=== PATIENT | female | born 1930 | race Caucasian/White ===

== ENCOUNTER 2017-08-21 17:34 | Emergency (ER) | payer OTHER ==
[~2017-08-21] VITALS: Ht 157.4 cm; Wt 56.7 kg
[~2017-08-21 17:34] MED LIST: COUMADIN5 M2; COUMADIN5 M2 PO; COUMADIN7.5 MG PO; PREDNISONE20 MG PO
[2017-08-21 18:11] LABS: BASO % 0.5 % (0.0-1.0); EOS # 0.2 10*3/uL (0.0-0.4); EOS % 2.3 % (1.0-4.0); HEMATOCRIT 36.5 % (37.0-47.0); HEMOGLOBIN 11.9 g/dl (12.0-16.0); LYMPH % 15.4 % (27.0-41.0); MEAN CELL VOLUME 90.3 fl (81.0-99.0); MEAN CORPUSCULAR HGB 29.5 pg (27.0-31.0); MEAN CORPUSCULAR HGB CONC 32.6 g/dl (33.0-37.0); MONO # 0.5 10*3/uL (0.1-1.0); MONO % 7.3 % (3.0-9.0); NEUT # 4.9 10*3/uL (2.3-7.9); NEUT % 73.9 % (47.0-73.0); PLATELET COUNT AUTOMATED 195 10*3/uL (130-400); RED BLOOD COUNT 4.04 10*6/uL (4.10-5.10); RED CELL DISTRI WIDTH 13.7 % (0-14.5); WHITE BLOOD COUNT 6.6 10*3/uL (4.8-10.8)
[2017-08-21 18:21] LABS: ACT PARTIAL THROMBO TIME 20.6 SECONDS (20.8-31.5)
[2017-08-21 18:23] LABS: BUN 25 mg/dl (7-24); CHLORIDE 109 mmol/L (98-107); CREATININE 0.95 mg/dL (0.55-1.02); SODIUM 142 mmol/L (136-145)
[2017-08-21 21:15] VITALS: BP 140/62
== END 2017-08-21 21:17 | disposition short-term general hospital (02) ==
LOC: ED 17:34
PROVIDERS: Emergency Medicine
DX: S72.092A Other fracture of head and neck of left femur, initial encounter for closed fracture (principal); G30.9 Alzheimer's disease, unspecified; F02.80 Dementia in other diseases classified elsewhere, unspecified severity, without behavioral disturbance, psychotic disturbance, mood disturbance, and anxiety; Z79.01 Long term (current) use of anticoagulants; W19.XXXA Unspecified fall, initial encounter; Y93.89 Activity, other specified; Y92.89 Other specified places as the place of occurrence of the external cause; Y99.9 Unspecified external cause status

== ENCOUNTER → 2018-01-22 | Day surgery (SDC) | payer OTHER ==
[~2018-01-22] MED LIST changes: +APRESOLINE25 MG PO; +ASPIRIN CHEWABL81 MG PO; +BUSPAR5 MG PO; +CELEBREX100 MG PO; +FERROUS SULFAT325 MG PO; +LOPRESSOR25 MG PO; +OMEPRAZOLE D/R20 MG PO; +REMERON15 M2 PO; +RISPERDAL0.25 MG PO; +Synthroid,Levo50 MCG PO; +ULTRAM50 MG PO; +XARELTO10 MG PO
--- NOTE | ~2018-01-22 | O ---
[place], [place] OPERATIVE NOTE NAME: JARRETT FRIEND UNIT #: [id number] ROOM: DOCTOR: TREE CHAVESMONICA BIRTHDATE: [birth year] DOS: 01/22/2018 GASTROENDOSCOPIC REPORT INDICATIONS: This is an 87-year-old patient who has [facility] with anemia, undergoing investigation. ALLERGIES: To no known medication. PAST MEDICAL HISTORY: Hypertension, hypercholesterolemia, hypothyroidism, and dementia. PAST SURGICAL HISTORY: Noncontributory. MEDICATIONS: As listed. PROCEDURE: Today's procedure part of investigation is panendoscopy plus antral biopsy. PREMEDICATION: Propofol. SCOPE: Olympus forward-viewing gastroscope Q10 video. REPORT: After putting the patient in left lateral position and application of lubricant to the scope, the scope was introduced. Thereafter, under direct visualization, it was advanced through the length of esophagus without difficulty. There was no evidence of ulceration or lesion in the esophagus. Gastric pouch was entered. Evidence of gastritis was noticed. Small antral biopsy was obtained. Duodenal bulb, second and third parts within normal limits. Scope was gradually withdrawn along the lesser curvature. GI reflexion of the scope reveals cardia to be benign. Air was suctioned out. The patient was extubated, tolerated the procedure well. IMPRESSION: Gastritis, status post biopsy. DISCUSSION: I cannot explain entire culprit for her anemia and guaiac positivity. Family has not consented to a colonoscopy; however, I am noticing on her chart that she is on aspirin, Celebrex, and Xarelto, and combination of all the above anticoagulant and antiplatelet could be responsible for slow and chronic mucosal blood loss, particularly in the presence of Celebrex. On the other hand, her stool is going to remain dark because she is on ferrous sulfate. Therefore, due to the presence of gastritis, I am going to start her on omeprazole 20 mg 1 daily to at least protect her against the damages of aspirin and Celebrex and follow up on H and H p.r.n. and all discussed with the daughter regarding the incomplete study because no consent to proceed with colonoscopy and actually canceled. Iron deficiency has been a point of concern and we are remain concerned that there is occult malignancy of colon possibly. However, they chose to have a conservative means of management. I thank you very much indeed for your kind referral. [place], [place] OPERATIVE NOTE NAME: JARRETT FRIEND UNIT #: [id number] ROOM: DOCTOR: MONICA LEAVITT MD BIRTHDATE: [birth year] MONICA LEAVITT MD CM:OPRECORD:OPERATIVE NOTE [id number] MONICA LEAVITT MD 01/22/18 1022 interface
[2018-01-22 08:59] VITALS: BP 156/74
[2018-01-22 09:48] VITALS: BP 91/56
[2018-01-22 10:05] VITALS: BP 136/85
[2018-01-22 10:19] VITALS: BP 143/76
== END | disposition home or self-care (01) ==
LOC: SDC 01-16 09:30
DX: K29.50 Unspecified chronic gastritis without bleeding (principal); I10 Essential (primary) hypertension; E78.00 Pure hypercholesterolemia, unspecified; K21.9 Gastro-esophageal reflux disease without esophagitis; E03.9 Hypothyroidism, unspecified; F03.90 Unspecified dementia, unspecified severity, without behavioral disturbance, psychotic disturbance, mood disturbance, and anxiety; F32.9 Major depressive disorder, single episode, unspecified; M19.90 Unspecified osteoarthritis, unspecified site; Z86.718 Personal history of other venous thrombosis and embolism; Z87.891 Personal history of nicotine dependence; Z79.01 Long term (current) use of anticoagulants; Z79.899 Other long term (current) drug therapy; Z82.49 Family history of ischemic heart disease and other diseases of the circulatory system; Z98.890 Other specified postprocedural states; Z79.82 Long term (current) use of aspirin

== ENCOUNTER 2018-04-03 18:03 | Inpatient (IN) | payer OTHER ==
[~2018-04-03] VITALS: Ht 162.5 cm; Wt 65.8 kg
--- NOTE | ~2018-04-03 | EKG ---
[place], [place] ELECTROCARDIOGRAM REPORT NAME: JARRETT FRIEND UNIT #: [id number] ROOM: 509 DOCTOR: EPIPHANY DRAFT REPORT BIRTHDATE: [birth year] [facility] Test Date: 2018-04-03 Test Time: 18:07:47 Pat Name: JARRETT FRIEND Department: 5E Room: 509 Gender: F Yarn Spinner: Ciera Pierson : 1930 Requested By: JIGNESH BETANCOUTR Order Number: [id number] Reading MD: Jayjay Shukla MD Measurements Intervals [place] Rate: 84 P: 52 [place]: 162 QRS: -53 QRSD: 107 T: 75 QT: 411 QTc: 486 Interpretive Statements Sinus rhythm Incomplete RBBB and LAFB Abnormal R-wave progression, early transition Probable left ventricular hypertrophy Anterior Q waves, possibly due to LVH Electronically Signed On 04-04-2018 10:49:56 PST by Jayjay Shukla MD CM:EKGRPT:ELECTROCARDIOGRAM REPORT 1807 1049 JIGNESH BETANCOURT EPIPHANY DRAFT REPORT JIGNESH BETANCOURT
--- NOTE | ~2018-04-03 | EKG ---
[place], [place] ELECTROCARDIOGRAM REPORT NAME: JARRETT FRIEND UNIT #: [id number] ROOM: 509 DOCTOR: DEAN DRAFT REPORT BIRTHDATE: [birth year] [facility] Test Date: 2018-04-04 Test Time: 00:05:42 Pat Name: JARRETT FRIEND Department: 5E Room: 509 Gender: F Picu Nurse: Ciera Pierson : 1930 Requested By: JIGNESH BETANCOURT Order Number: [id number] Reading MD: Jayjay Shukla MD Measurements Intervals [employer] Rate: 82 P: 66 DE: 164 QRS: -61 QRSD: 111 T: 75 QT: 396 QTc: 463 Interpretive Statements Sinus rhythm Probable left atrial enlargement Incomplete left bundle branch block Left ventricular hypertrophy Electronically Signed On 04-04-2018 10:51:30 PST by Jayjay Shukla MD CM:EKGRPT:ELECTROCARDIOGRAM REPORT 0005 1051 JIGNESH BETANCOURT EPIPHANY DRAFT REPORT JIGNESH BETANCOURT
--- NOTE | ~2018-04-03 | EKG ---
[place], [place] ELECTROCARDIOGRAM REPORT NAME: JARRETT FRIEND UNIT #: [id number] ROOM: 509 DOCTOR: DEAN DRAFT REPORT BIRTHDATE: [birth year] [facility] Test Date: 2018-04-03 Test Time: 21:44:32 Pat Name: JARRETT FRIEND Department: Room: 509 Gender: F Hearing Screener: EKG.[place] : 1930 Requested By: JIGNESH BETANCOURT Order Number: [id number] Reading MD: Jayjay Shukla MD Measurements Intervals [place] Rate: 80 P: 57 [place]: 162 QRS: -58 QRSD: 116 T: 79 QT: 385 QTc: 445 Interpretive Statements Sinus rhythm Probable left atrial enlargement Left anterior fascicular block Left ventricular hypertrophy ST elevation, consider inferior injury Electronically Signed On 04-04-2018 10:51:10 PST by Jayjay Shukla MD CM:EKGRPT:ELECTROCARDIOGRAM REPORT 1051 JIGNESH BETANCOURT EPIPHANY DRAFT REPORT JIGNESH BETANCOURT
[2018-04-03 18:13] VITALS: BP 140/68
[2018-04-03 18:34] LABS: BASO % 0.3 % (0.0-1.0); EOS # 0.2 10*3/uL (0.0-0.4); HEMATOCRIT 33.1 % (37.0-47.0); HEMOGLOBIN 10.5 g/dl (12.0-16.0); LYMPH # 1.4 10*3/uL (1.3-4.4); LYMPH % 20.2 % (27.0-41.0); MEAN CELL VOLUME 90.2 fl (81.0-99.0); MEAN CORPUSCULAR HGB 28.6 pg (27.0-31.0); MEAN CORPUSCULAR HGB CONC 31.7 g/dl (33.0-37.0); MEAN PLATELET VOLUME 11.3 fl (9.6-12.3); MONO # 0.6 10*3/uL (0.1-1.0); MONO % 8.5 % (3.0-9.0); NEUT # 4.8 10*3/uL (2.3-7.9); NEUT % 67.7 % (47.0-73.0); PLATELET COUNT AUTOMATED 225 10*3/uL (130-400); RED BLOOD COUNT 3.67 10*6/uL (4.10-5.10); RED CELL DISTRI WIDTH 14.7 % (0-14.5)
[2018-04-03 18:52] LABS: ALBUMIN 2.9 gm/dl (3.1-4.5); ALKALINE PHOSPHATASE 96 U/L (45-117); BUN 27 mg/dl (7-24); CHLORIDE 109 mmol/L (98-107); CREATININE 0.86 mg/dL (0.55-1.02); SGOT/AST 15 IU/L (3-35); SGPT/ALT 24 U/L (12-78); SODIUM 143 mmol/L (136-145); TOTAL PROTEIN 6.9 gm/dL (6.4-8.2)
[2018-04-03 18:54] LABS: ACT PARTIAL THROMBO TIME 23.1 SECONDS (20.8-31.5); INTERNATIONAL NORM RATIO 0.9 (2.0-3.5)
[2018-04-03 18:58] LABS: TROPONIN I < 0.015 ng/ml (<0.045)
[2018-04-03 21:00] VITALS: BP 132/72
[2018-04-03 21:30] VITALS: BP 140/80
--- NOTE | 2018-04-03 21:30 | NUR ---
A 88, admitted to , under the services of ELVIRA Bennett DO with a diagnosis of CHEST PAIN, R/O ACUTE WI. Chief complaint is CHEST PAIN COMPLAINT FOXES. Patient arrived via bed from ER. Monitor applied. Initial assessment completed. Vital signs taken and recorded. ELVIRA BENNETT DO notified of admission to the unit. Orders received. See assessment for past medical history, medications and allergies. Patient and/or family oriented to unit. [facility]. Clothing/patient valuable form completed. DANIEL LANDRY
--- NOTE | 2018-04-03 21:56 | NUR ---
NOTIFIED DR. ESPINOSA OF PTS. BLANCHABLE RED AREA ON COCCYX WITH OPTIFOAM DRESSING FROM [facility] AND SMALL 0.1X0.1X0.1 STAGE II WITHIN THE RED AREA. PER DR. ESPINOSA, LET WOUND CARE NURSE TAKE A LOOK AND FOLLOW HER RECOMMENDATIONS.
[2018-04-04] VITALS: BP 145/79
--- NOTE | 2018-04-04 02:47 | NUR ---
24 HR chart check completed.
--- NOTE | 2018-04-04 03:56 | NUR ---
PT IS ASLEEP IN BED AT THIS TIME WITH NO SIGNS OR SYMPTOMS OF PAIN OR DISCOMFORT. SHE IS CURRENTLY NORMAL SINUS RYTHM ON THE MONITOR WITH A HEART RATE IN THE 80'S. RESPIRATIONS ARE EASY AND UNLABORED. BED IS IN LOWEST POSITION AND ALARM IS ON. CALL LIGHT IS WITHIN REACH. WILL CONTINUE TO MONITOR PT.
--- NOTE | 2018-04-04 05:03 | NUR ---
DR. SOLITARIO'S ANSWERING SERVICE NOTIFIED OF CONSULT.
--- NOTE | 2018-04-04 06:51 | NUR ---
JARRETT FRIEND [id number] Please refer to the physician's history and physical for past medical history, comorbid conditions, and allergies. Diagnosis: CHEST PAIN, RULE OUT ACUTE MYOCARDIAL INFARCTION Sanjiv Score: 13,MODERATE RISK WOUND DESCRIPTIONS: Location of the wound: right buttocks Type of wound: stage 2 Thickness: Partial Size: 0.3cm x 0.4cm x 0.1cm Tunneling: none Undermining: none Sinus Tract: none Presence of Exudate: Serous Amount: Light Color: Red Odor: None Periwound Skin Appearance: Erythema Wound edges: approximated Pain (associated with wound): none at time of assessment How does patient state this happened? pt unable to state how this happened. Surface the patient is resting on: Isoflex SKIN PREVENTION RECOMMENDATION: 1. Pressure redistribution support surface as appropriate 2. Elevate heels 3. Remove boots/TEDS every shift and reapply 4. Head of bed 30 degrees as tolerated 5. Assess nutrition and hydration 6. Manage moisture 7. Avoid the use of containment devices while in bed 8. Use absorptive products on surfaces limit layers of linens on bed 9. Turn and reposition every 1-2 hours in bed and every 1 hour in chair as tolerated 10. Weight shifts every 15 minutes while up in chair 11. Offloading with pillows or device to keep heels elevated off bed 12. Monitor skin at least every shift 13. Inspect under medical devices twice a day WOUND TREATMENT RECOMMENDATIONS: stage 2 guidelines: Cleanse right buttocks with nss and apply sureprep around the wound hyrdrogel to wound bed and cover with optifoam gentle. Wheelchair cushion oob. Heel raiser pro boots while in bed.
[2018-04-04 08:00] VITALS: BP 152/82
[2018-04-04 08:25] LABS: BASO % 0.3 % (0.0-1.0); EOS # 0.2 10*3/uL (0.0-0.4); EOS % 2.7 % (1.0-4.0); HEMATOCRIT 34.9 % (37.0-47.0); HEMOGLOBIN 10.9 g/dl (12.0-16.0); LYMPH # 1.3 10*3/uL (1.3-4.4); LYMPH % 16.6 % (27.0-41.0); MEAN CELL VOLUME 90.2 fl (81.0-99.0); MEAN CORPUSCULAR HGB 28.2 pg (27.0-31.0); MEAN CORPUSCULAR HGB CONC 31.2 g/dl (33.0-37.0); MEAN PLATELET VOLUME 11.5 fl (9.6-12.3); MONO # 0.5 10*3/uL (0.1-1.0); MONO % 6.2 % (3.0-9.0); NEUT # 5.7 10*3/uL (2.3-7.9); NEUT % 74.1 % (47.0-73.0); PLATELET COUNT AUTOMATED 223 10*3/uL (130-400); RED BLOOD COUNT 3.87 10*6/uL (4.10-5.10); RED CELL DISTRI WIDTH 14.6 % (0-14.5); WHITE BLOOD COUNT 7.7 10*3/uL (4.8-10.8)
--- NOTE | 2018-04-04 08:41 | NUR ---
ECHO BEING DONE AT THIS TIME.
--- NOTE | 2018-04-04 08:48 | NUR ---
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
--- NOTE | 2018-04-04 08:57 | NUR ---
DR WILSON INFORMED THAT PT PULLED IV OUT. STATES OK TO LEAVE IV OUT, PT WILL LIKELY BE D/C TODAY.
[2018-04-04 09:04] LABS: ALBUMIN 2.9 gm/dl (3.1-4.5); BUN 23 mg/dl (7-24); CHLORIDE 106 mmol/L (98-107); CHOLESTEROL 169 mg/dL (<200); CREATININE 0.72 mg/dL (0.55-1.02); PHOSPHOROUS 3.1 mg/dL (2.5-4.9); POTASSIUM 4.2 mmol/L (3.5-5.1); SGOT/AST 17 IU/L (3-35); SGPT/ALT 22 U/L (12-78); SODIUM 140 mmol/L (136-145); TRIGLYCERIDES 107 mg/dl (<150); VLDL CHOLESTEROL 21 mg/dL (6-40)
[2018-04-04 09:11] LABS: ALKALINE PHOSPHATASE 87 U/L (45-117); HDL CHOLESTEROL 58 mg/dl (40-60); LDL CHOLESTEROL 90 mg/dL (9-159); TOTAL PROTEIN 6.9 gm/dL (6.4-8.2)
--- NOTE | 2018-04-04 11:31 | NUR ---
PT IS ASSISTED CARE AT [facility] AND CAN RETURN WHEN MEDICALLY STABLE. WILL CONTINUE TO FOLLOW.
[2018-04-04 12:00] VITALS: BP 107/67
--- NOTE | 2018-04-04 14:08 | NUR ---
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 SPOKE WITH DR WILSNO REGARDING THIS. STATES OK TO REMOVE BARREL MAKER.
--- NOTE | 2018-04-04 16:32 | NUR ---
PT IS DISCHARGED BACK TO [facility]. OK WITH [facility] FOR PT TO RETURN. [facility] WILL PICK PT UP AT 5:30 PM. FERMIN FLOOR NURSE INFORMED. INFORMED HER I DID NOT NOTIFY FAMILY
--- NOTE | 2018-04-04 16:55 | NUR ---
NURSE TO NURSE REPORT GIVEN TO TODD AT [facility]. FAMILY UPDATED ON D/C PLAN.
--- NOTE | 2018-04-04 17:23 | NUR ---
Discharge instructions reviewed with patient/family. Patient receptive and verbalizes understanding. Follow-up care arranged. Written instructions given to patient/family. retail product demo specialist removed. Pt transported via [facility]. FERMIN RUIZ
[2018-06-17] MEDS ORDERED: PRILOSEC20 M1 PO (21:48)
[2018-06-17] MEDS ORDERED: MUSCLE RUB CREA35 GM T (21:48)
[2018-06-17] MEDS ORDERED: REMERON15 M2 PO (21:49)
[2018-06-17] MEDS ORDERED: XARELTO10 MG PO (21:49)
[2018-06-17] MEDS ORDERED: RISPERDAL0.5 MG PO (21:49)
[2018-06-17] MEDS ORDERED: Synthroid,Levo50 MCG PO (21:50)
[2018-06-17] MEDS ORDERED: TYLENOL325 M3 PO (21:50)
[2018-06-17] MEDS ORDERED: TYLENOL WITH C1 EACH PO (21:51)
== END 2018-04-04 17:23 | DRG 313 ==
LOC: ED 18:03 → 5E 19:32 → EDHOLD 19:32 → 5E 20:36
PROVIDERS: Family Medicine; Nurse Practitioner Family; ADMIT Internal Medicine
DX: R07.89 Other chest pain (principal); E44.0 Moderate protein-calorie malnutrition; J98.11 Atelectasis; G30.9 Alzheimer's disease, unspecified; F02.80 Dementia in other diseases classified elsewhere, unspecified severity, without behavioral disturbance, psychotic disturbance, mood disturbance, and anxiety; K21.9 Gastro-esophageal reflux disease without esophagitis; M19.90 Unspecified osteoarthritis, unspecified site; M81.0 Age-related osteoporosis without current pathological fracture; I10 Essential (primary) hypertension; D64.9 Anemia, unspecified; E87.8 Other disorders of electrolyte and fluid balance, not elsewhere classified; R00.0 Tachycardia, unspecified; Z95.828 Presence of other vascular implants and grafts; Z82.49 Family history of ischemic heart disease and other diseases of the circulatory system; Z80.9 Family history of malignant neoplasm, unspecified; Z86.718 Personal history of other venous thrombosis and embolism; Z86.711 Personal history of pulmonary embolism; Z79.82 Long term (current) use of aspirin; Z79.899 Other long term (current) drug therapy; Z68.24 Body mass index [BMI] 24.0-24.9, adult

== ENCOUNTER 2018-04-24 09:04 | Emergency (ER) | payer OTHER ==
[~2018-04-24] VITALS: Wt 49.9 kg
--- NOTE | ~2018-04-24 | EKG ---
[place], [place] ELECTROCARDIOGRAM REPORT NAME: JARRETT FRIEND UNIT #: [id number] ROOM: DOCTOR: EPIPHANY DRAFT REPORT BIRTHDATE: [birth year] [facility] Test Date: 2018-04-24 Test Time: 09:29:47 Pat Name: JARRETT FRIEND Department: Room: Gender: F Build Master: : 1930 Requested By: CORETTA KAPLAN Order Number: [id number] Reading MD: Marisol Lopez MD Measurements Intervals [place] Rate: 109 P: 48 [place]: 156 QRS: -54 QRSD: 104 T: 78 QT: 338 QTc: 456 Interpretive Statements Sinus tachycardia Left anterior fascicular block Abnormal R-wave progression, late transition Probable left ventricular hypertrophy Compared to ECG 04/04/2018 00:05:42 Left anterior fascicular block now present Sinus rhythm no longer present Left bundle-branch block no longer present Electronically Signed On 04-25-2018 15:54:38 PST by Marisol Lopez MD CM:EKGRPT:ELECTROCARDIOGRAM REPORT 0929 1554 CORETTA MORAN DRAFT REPORT CORETTA KAPLAN MD
[2018-04-24 09:34] LABS: BASO % 0.3 % (0.0-1.0); EOS # 0.2 10*3/uL (0.0-0.4); EOS % 1.5 % (1.0-4.0); HEMATOCRIT 33.4 % (37.0-47.0); HEMOGLOBIN 10.7 g/dl (12.0-16.0); LYMPH % 10.3 % (27.0-41.0); MEAN CORPUSCULAR HGB 29.5 pg (27.0-31.0); MEAN PLATELET VOLUME 11.3 fl (9.6-12.3); MONO # 0.7 10*3/uL (0.1-1.0); NEUT # 8.1 10*3/uL (2.3-7.9); NEUT % 80.4 % (47.0-73.0); PLATELET COUNT AUTOMATED 282 10*3/uL (130-400); RED BLOOD COUNT 3.63 10*6/uL (4.10-5.10); RED CELL DISTRI WIDTH 14.5 % (0-14.5); WHITE BLOOD COUNT 10.1 10*3/uL (4.8-10.8)
[2018-04-24 09:51] LABS: BUN 47 mg/dl (7-24); CHLORIDE 107 mmol/L (98-107); CREATININE 1.05 mg/dL (0.55-1.02); POTASSIUM 4.8 mmol/L (3.5-5.1); SODIUM 140 mmol/L (136-145)
[2018-04-24 09:52] LABS: TROPONIN I < 0.015 ng/ml (<0.045)
[2018-04-24 11:02] VITALS: BP 108/68
[2018-06-17] MEDS ORDERED: PRILOSEC20 M1 PO (21:48)
[2018-06-17] MEDS ORDERED: MUSCLE RUB CREA35 GM T (21:48)
[2018-06-17] MEDS ORDERED: XARELTO10 MG PO (21:49)
[2018-06-17] MEDS ORDERED: RISPERDAL0.5 MG PO (21:49)
[2018-06-17] MEDS ORDERED: REMERON15 M2 PO (21:49)
[2018-06-17] MEDS ORDERED: Synthroid,Levo50 MCG PO (21:50)
[2018-06-17] MEDS ORDERED: TYLENOL325 M3 PO (21:50)
[2018-06-17] MEDS ORDERED: TYLENOL WITH C1 EACH PO (21:51)
[2018-06-21] MEDS ORDERED: NYSTOP60 GM T (15:40)
[2018-06-21] MEDS ORDERED: METOPROLOL TART50 M1 PO (15:40)
[2018-06-21] MEDS ORDERED: VITAMIN D32000 UNI1 PO (15:40)
[2018-06-21] MEDS ORDERED: Bactroban Oint22 GM NAS (15:40)
[2018-06-21] MEDS ORDERED: TYLENOL WITH C1 EACH PO (15:40)
[2018-06-21] MEDS ORDERED: XARE15TA PO (15:40)
[2018-06-21] MEDS ORDERED: DILTIAZEM 24HR120 MG PO (15:40)
== END 2018-04-24 11:26 | disposition home or self-care (01) ==
LOC: ED 09:04
PROVIDERS: Emergency Medicine
DX: R00.0 Tachycardia, unspecified (principal); R41.0 Disorientation, unspecified; R94.2 Abnormal results of pulmonary function studies; I10 Essential (primary) hypertension; F03.90 Unspecified dementia, unspecified severity, without behavioral disturbance, psychotic disturbance, mood disturbance, and anxiety; M81.0 Age-related osteoporosis without current pathological fracture; K21.9 Gastro-esophageal reflux disease without esophagitis; M19.90 Unspecified osteoarthritis, unspecified site; Z79.899 Other long term (current) drug therapy; Z79.82 Long term (current) use of aspirin; Z86.718 Personal history of other venous thrombosis and embolism; Z79.01 Long term (current) use of anticoagulants